=== PATIENT | male | born 1930 | race Caucasian/White ===

== ENCOUNTER 2019-05-15 11:57 | Inpatient (IN) | payer MEDICARE, OTHER ==
[~2019-05-15] VITALS: Ht 162.6 cm; Wt 70.8 kg
[2019-05-15 12:32] LABS: BASOPHILS # (AUTO) 0.1 X10'3 (0-0.2); BASOPHILS % (AUTO) 1.1 % (0-1); EOSINOPHILS # (AUTO) 0.2 X10'3 (0-0.9); EOSINOPHILS % (AUTO) 2.5 % (0-6); HEMATOCRIT 41.3 % (42.0-52.0); HEMOGLOBIN 13.7 g/dl (14.0-17.9); LYMPHOCYTES # (AUTO) 1.4 X10'3 (1.1-4.8); LYMPHOCYTES % (AUTO) 21.6 % (21-51); MEAN CORPUSCULAR HEMOGLOBIN 29.7 PG (27.0-31.0); MEAN CORPUSCULAR HGB CONC 33.2 g/dL (33.0-36.5); MEAN CORPUSCULAR VOLUME 89.5 FL (78-98); MEAN PLATELET VOLUME 9.1 FL (7.4-10.4); NEUTROPHILS # (AUTO) 3.8 X10'3 (1.8-7.7); NEUTROPHILS % (AUTO) 59.8 % (42-75); PLATELET COUNT 220 X10'3 (140-440); RED BLOOD COUNT 4.62 X10'6 (4.70-6.10); RED CELL DISTRIBUTION WIDTH 14.3 % (11.5-14.5); WHITE BLOOD COUNT 6.4 X10'3 (4.5-11.0)
[2019-05-15 12:44] LABS: PARTIAL THROMBOPLASTIN TIME 27 SECONDS (22-32)
[2019-05-15 12:45] LABS: ALANINE AMINOTRANSFERASE 39 U/L (12-78); ALBUMIN 3.8 G/DL (3.4-5.0); ALBUMIN/GLOBULIN RATIO 1.1 (1.1-1.5); ALKALINE PHOSPHATASE 52 IU/L (46-116); ANION GAP 9 (8-16); ASPARTATE AMINO TRANSFERASE 33 U/L (10-37); BILIRUBIN,TOTAL 0.4 MG/DL (0.1-1.0); BLOOD UREA NITROGEN 23 MG/DL (7-18); BUN/CREATININE RATIO 18.1 (5.4-32.0); CALCIUM 8.8 MG/DL (8.5-10.1); CHLORIDE 105 MMOL/L (99-107); CREATININE 1.27 MG/DL (0.60-1.10); GLUCOSE 85 MG/DL (70-104); POTASSIUM 4.5 MMOL/L (3.5-5.1); SODIUM 141 MMOL/L (135-145); TOTAL CARBON DIOXIDE 26.8 MMOL/L (24-32); TOTAL PROTEIN 7.3 G/DL (6.4-8.2); eGFR 54 ML/MIN
[2019-05-15] MEDS ORDERED: heparin 10,000 units/1 ML INJ IV ONE ×2 (13:00→13:05)
[2019-05-15] MEDS ORDERED: ATOR40TA PO (13:22)
[2019-05-15] MEDS ORDERED: HYDR12.5 PO (13:22)
[2019-05-15] MEDS ORDERED: METO25TA6 PO (13:22)
[2019-05-15] MEDS ORDERED: OMEP20CA11 PO (13:22)
[2019-05-15] MEDS: heparin 25,000 UNIT/250ml bag 250 ML IV SCH ×2 (13:23→22:10)
[2019-05-15] MEDS ORDERED: nitroGLYCERIN 0.4mg SUBLingual tab SL PRN ×3 (13:25→14:20)
[2019-05-15] MEDS ORDERED: heparin 25,000 UNIT/250ml bag 250 ML IV SCH (14:19)
[2019-05-15] MEDS ORDERED: mag hydrox/Alum hydrox/simeth 30ml oral suspension PO PRN (14:20)
[2019-05-15] MEDS ORDERED: HYDROcodone/acetaminophen 5mg/325mg tablet PO PRN (14:20)
[2019-05-15] MEDS ORDERED: aminophylline 250mg/10ml inj. IV PRN (14:20)
[2019-05-15] MEDS ORDERED: potassium Cl 20 mEq SR tablet PO PRN ×2 (14:20)
[2019-05-15] MEDS ORDERED: metoprolol tartrate 1mg/ml inj IV PRN (14:20)
[2019-05-15] MEDS ORDERED: ondansetron/PF 4mg/2ml inj IV PRN (14:20)
[2019-05-15] MEDS ORDERED: morphine 2 MG/ML inj. syringe IV PRN ×2 (14:20)
[2019-05-15] MEDS ORDERED: heparin 10,000 units/1 ML INJ IV PRN (14:20)
[2019-05-15] MEDS ORDERED: potassium CL 10mEq/100ml bag 100 ML IV PRN ×2 (14:20)
[2019-05-15] MEDS ORDERED: magnesium 2GM in 50ml NS 50 ML IV PRN (14:20)
[2019-05-15] MEDS ORDERED: regadenoson 0.4mg/5ml syringe IV ONE (14:20)
[2019-05-15] MEDS ORDERED: magnesium 4gm in 100ml NS 100 ML IV PRN (14:20)
[2019-05-15] MEDS ORDERED: magnesium Cl slow-release 64mg tablet PO PRN (14:20)
[2019-05-15] MEDS ORDERED: acetaminophen 325mg tablet PO PRN ×2 (14:20)
[2019-05-15] MEDS ORDERED: magnesium hydroxide 30ml (MOM) UD suspension PO PRN (14:20)
[2019-05-15] MEDS: normal saline 1000ml 1,000 ML IV SCH (14:49)
[2019-05-15 15:07] LABS: PHOSPHORUS 4.6 MG/DL (2.3-4.5)
[2019-05-15 16:00] VITALS: BP 147/59
[2019-05-15 16:59] LABS: MAGNESIUM 1.9 MG/DL (1.5-2.4)
--- NOTE | 2019-05-15 17:25 | NUR ---
PAGER ID: [phone] MESSAGE: [phone]-[facility]. FYI. 2nd Trop. is 0.52. Thank You. Cole CUEVA [id number]
[2019-05-15 18:00] VITALS: BP 148/65
--- NOTE | 2019-05-15 18:00 | NUR ---
Patient in room MED 316. I have received report from Cole CUEVA and had the opportunity to ask questions and assume patient care.
--- NOTE | 2019-05-15 18:25 | NUR ---
Problems reprioritized. Patient report given, questions answered & plan of care reviewed with oCrinne CUEVA and Carroll CUEVA.
[2019-05-15] MEDS: metoprolol tartrate 25mg tablet PO SCH (20:00)
[2019-05-15] MEDS ORDERED: temazepam 15mg capsule PO PRN (21:00)
[2019-05-15 22:00] VITALS: BP 127/58
[2019-05-16] VITALS (14 sets, daily range): BP systolic 118–167; BP diastolic 45–64
[2019-05-16 01:22] LABS: BASOPHILS # (AUTO) 0.1 X10'3 (0-0.2); EOSINOPHILS # (AUTO) 0.2 X10'3 (0-0.9); EOSINOPHILS % (AUTO) 3.9 % (0-6); HEMATOCRIT 38.8 % (42.0-52.0); HEMOGLOBIN 13.1 g/dl (14.0-17.9); LYMPHOCYTES # (AUTO) 1.4 X10'3 (1.1-4.8); MEAN CORPUSCULAR HEMOGLOBIN 29.8 PG (27.0-31.0); MEAN CORPUSCULAR HGB CONC 33.8 g/dL (33.0-36.5); MEAN CORPUSCULAR VOLUME 88.2 FL (78-98); MEAN PLATELET VOLUME 9.1 FL (7.4-10.4); MONOCYTES # (AUTO) 0.8 X10'3 (0-0.9); MONOCYTES % (AUTO) 14.4 % (2-12); NEUTROPHILS # (AUTO) 2.9 X10'3 (1.8-7.7); NEUTROPHILS % (AUTO) 54.7 % (42-75); PLATELET COUNT 191 X10'3 (140-440); RED CELL DISTRIBUTION WIDTH 14.2 % (11.5-14.5); WHITE BLOOD COUNT 5.4 X10'3 (4.5-11.0)
[2019-05-16 01:34] LABS: ALBUMIN 3.4 G/DL (3.4-5.0); ANION GAP 9 (8-16); BLOOD UREA NITROGEN 20 MG/DL (7-18); CALCIUM 8.4 MG/DL (8.5-10.1); CHLORIDE 107 MMOL/L (99-107); CHOL/HDL RATIO 4.6 (0.00-4.99); CHOLESTEROL 158 MG/DL (0-200); CREATININE 1.11 MG/DL (0.60-1.10); GLUCOSE 99 MG/DL (70-104); HDL CHOLESTEROL 34 MG/DL (35-60); LDL CHOLESTEROL 117 MG/DL (50-100); MAGNESIUM 1.9 MG/DL (1.5-2.4); PHOSPHORUS 4.2 MG/DL (2.3-4.5); POTASSIUM 3.9 MMOL/L (3.5-5.1); SODIUM 142 MMOL/L (135-145); TRIGLYCERIDES 88 MG/DL (20-135); eGFR 63 ML/MIN
--- NOTE | 2019-05-16 02:20 | NUR ---
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 Corinne ACCE [id number]
[2019-05-16] MEDS: normal saline 1000ml 1,000 ML IV SCH ×2 (04:37→21:17)
--- NOTE | 2019-05-16 05:25 | NUR ---
I reviewed and agree with all the documentation performed by Anand.
[2019-05-16] MEDS: heparin 10,000 units/1 ML INJ IV PRN ×2 (05:45→05:53)
[2019-05-16] MEDS: heparin 25,000 UNIT/250ml bag 250 ML IV SCH ×3 (05:57→20:45)
--- NOTE | 2019-05-16 06:46 | NUR ---
I have received report from Corinne CUEVA and Carroll CUEVA and had the opportunity to ask questions and assume patient care.
[2019-05-16] MEDS: pantoprazole 40mg Tablet.DR PO SCH (07:49)
[2019-05-16] MEDS: aspirin 325mg tablet PO SCH (07:49)
--- NOTE | 2019-05-16 07:56 | NUR ---
PAGER ID: [phone] MESSAGE: [phone]. [facility] is asking if we still want to do the test due to the pt. having rising trops? Cole CUEVA [id number]
[2019-05-16] MEDS: HYDROchlorothiazide 12.5mg capsule PO SCH (08:00)
[2019-05-16] MEDS: metoprolol tartrate 25mg tablet PO SCH ×2 (08:00→20:38)
[2019-05-16] MEDS: K and/or MAG REPLACEMENT MC SCH (08:00)
[2019-05-16] MEDS ORDERED: aspirin 325mg tablet PO SCH (08:30)
[2019-05-16 12:16] LABS: PARTIAL THROMBOPLASTIN TIME 65 SECONDS (22-32)
--- NOTE | 2019-05-16 18:14 | NUR ---
Problems reprioritized. Patient report given, questions answered & plan of care reviewed with Carroll CUEVA and Corinne CUEVA.
[2019-05-16] MEDS: acetylcysteine 200 MG/ml 4ml vial PO SCH (20:47)
--- NOTE | 2019-05-16 21:30 | NUR ---
DR. ERNANDEZ CAME BY UNIT. ORDERED PATIENT TO BE NPO IN THE MORNING AFTER A LIGHT BREAKFAST AND TO NOTIFY NURSING ALCOHOL RUBBER THAT PATIENT NEEDS TO BE PUT ON THE CATH LIST FOR TOMORROW. NURSING ALCOHOL RUBBER NOTIFIED.
[2019-05-17] VITALS (13 sets, daily range): BP systolic 125–176; BP diastolic 51–85
[2019-05-17] MEDS: heparin 25,000 UNIT/250ml bag 250 ML IV SCH (01:30)
[2019-05-17 01:50] LABS: BASOPHILS # (AUTO) 0.1 X10'3 (0-0.2); BASOPHILS % (AUTO) 1.1 % (0-1); EOSINOPHILS # (AUTO) 0.2 X10'3 (0-0.9); EOSINOPHILS % (AUTO) 3.3 % (0-6); HEMATOCRIT 38.6 % (42.0-52.0); HEMOGLOBIN 13.1 g/dl (14.0-17.9); LYMPHOCYTES # (AUTO) 1.4 X10'3 (1.1-4.8); LYMPHOCYTES % (AUTO) 25.1 % (21-51); MEAN CORPUSCULAR HEMOGLOBIN 29.9 PG (27.0-31.0); MEAN CORPUSCULAR HGB CONC 33.9 g/dL (33.0-36.5); MEAN CORPUSCULAR VOLUME 88.2 FL (78-98); MONOCYTES # (AUTO) 0.9 X10'3 (0-0.9); MONOCYTES % (AUTO) 15.6 % (2-12); NEUTROPHILS % (AUTO) 54.9 % (42-75); PLATELET COUNT 189 X10'3 (140-440); RED BLOOD COUNT 4.37 X10'6 (4.70-6.10); RED CELL DISTRIBUTION WIDTH 14.4 % (11.5-14.5); WHITE BLOOD COUNT 5.5 X10'3 (4.5-11.0)
[2019-05-17 02:04] LABS: ALBUMIN 3.3 G/DL (3.4-5.0); ANION GAP 8 (8-16); BLOOD UREA NITROGEN 20 MG/DL (7-18); BUN/CREATININE RATIO 17.9 (5.4-32.0); CALCIUM 8.3 MG/DL (8.5-10.1); CHLORIDE 108 MMOL/L (99-107); CREATININE 1.12 MG/DL (0.60-1.10); GLUCOSE 102 MG/DL (70-104); PHOSPHORUS 3.6 MG/DL (2.3-4.5); POTASSIUM 3.8 MMOL/L (3.5-5.1); SODIUM 142 MMOL/L (135-145); TOTAL CARBON DIOXIDE 26.4 MMOL/L (24-32); eGFR 62 ML/MIN
--- NOTE | 2019-05-17 07:02 | NUR ---
Patient in room MED 316. I have received report from HAMMAD Hodges and had the opportunity to ask questions and assume patient care.
[2019-05-17] MEDS: K and/or MAG REPLACEMENT MC SCH (07:41)
[2019-05-17] MEDS: pantoprazole 40mg Tablet.DR PO SCH (07:49)
[2019-05-17] MEDS: atorvastatin 20mg tablet PO SCH (07:50)
[2019-05-17] MEDS: metoprolol tartrate 25mg tablet PO SCH ×2 (07:51→21:54)
[2019-05-17] MEDS: HYDROchlorothiazide 12.5mg capsule PO SCH (07:51)
[2019-05-17] MEDS: aspirin 325mg tablet PO SCH (07:52)
[2019-05-17] MEDS: acetylcysteine 200 MG/ml 4ml vial PO SCH ×2 (08:04→23:25)
[2019-05-17] MEDS: normal saline 1000ml 1,000 ML IV SCH (13:22)
[2019-05-17] MEDS ORDERED: iohexol 350MG/ML 100ml bottle IV ONE ×3 (16:27→17:51)
[2019-05-17] MEDS ORDERED: midazolam 2 mg/2 ml injection ONE (16:27)
[2019-05-17] MEDS ORDERED: nitroGLYCERIN-Tridil 50MG/D5W 250 ML IV ONE (16:27)
[2019-05-17] MEDS ORDERED: iohexol 350 MG/ML 50ML vial IV ONE (16:27)
[2019-05-17] MEDS ORDERED: LIDOcaine 1% (10mg/ml)w/preservative injection 20ml MDV ONE (16:27)
[2019-05-17] MEDS ORDERED: fentaNYL/PF 50MCG/1 ML 2ML syringe ONE (16:27)
[2019-05-17] MEDS ORDERED: heparin 1,000unit/ml 10ml vial 10 ML ONE (16:27)
--- NOTE | 2019-05-17 16:42 | NUR ---
PATIENT'S PEDAL PULSES MARKED, CONSENT SIGNED ; TRANSFERRED TO COAL CAGER VIA W/C AT THIS TIME. Addendum: 05/17/19 at 1645 by Keeley Helm RN Amended: Links added.
[2019-05-17] MEDS ORDERED: tirofiban 12.5mg in NS 250mL 250 ML IV ONE (17:33)
[2019-05-17] MEDS ORDERED: verapamil 2.5 mg/ml inj IV ONE (17:43)
[2019-05-17] MEDS ORDERED: ticagrelor 90mg tablet ONE (18:09)
[2019-05-17] MEDS ORDERED: aspirin 325mg tablet PO ONE (19:55)
[2019-05-17] MEDS ORDERED: normal saline 1000ml 1,000 ML IV ONE (19:55)
[2019-05-17] MEDS ORDERED: OXAZEpam 15mg capsule PO PRN (20:00)
[2019-05-17] MEDS ORDERED: ticagrelor 90mg tablet PO ONE (20:00)
[2019-05-17] MEDS ORDERED: cyclobenzaprine 10mg tablet PO PRN (20:00)
[2019-05-17] MEDS ORDERED: acetaminophen 325mg tablet PO PRN (20:00)
[2019-05-17] MEDS ORDERED: magnesium hydroxide 30ml (MOM) UD suspension PO PRN (20:00)
[2019-05-17] MEDS ORDERED: HYDROcodone/acetaminophen 10/325mg tab PO PRN ×2 (20:00)
[2019-05-17] MEDS ORDERED: tirofiban 12.5mg in NS 250mL 250 ML IV SCH (20:10)
[2019-05-17] MEDS: docusate sod 100mg capsule PO SCH (21:54)
[2019-05-18] VITALS (21 sets, daily range): BP systolic 102–151; BP diastolic 43–61
[2019-05-18 01:29] LABS: PARTIAL THROMBOPLASTIN TIME 72 SECONDS (22-32)
[2019-05-18 01:35] LABS: ANION GAP 8 (8-16); BLOOD UREA NITROGEN 15 MG/DL (7-18); BUN/CREATININE RATIO 16.9 (5.4-32.0); CALCIUM 7.7 MG/DL (8.5-10.1); CHLORIDE 109 MMOL/L (99-107); CHOLESTEROL 149 MG/DL (0-200); CREATININE 0.89 MG/DL (0.60-1.10); GLUCOSE 128 MG/DL (70-104); HDL CHOLESTEROL 37 MG/DL (35-60); LDL CHOLESTEROL 101 MG/DL (50-100); MAGNESIUM 1.9 MG/DL (1.5-2.4); PHOSPHORUS 2.3 MG/DL (2.3-4.5); POTASSIUM 3.6 MMOL/L (3.5-5.1); SODIUM 140 MMOL/L (135-145); TOTAL CARBON DIOXIDE 23.3 MMOL/L (24-32); TRIGLYCERIDES 80 MG/DL (20-135); eGFR 81 ML/MIN
[2019-05-18 01:41] LABS: BASOPHILS % (AUTO) 0.5 % (0-1); EOSINOPHILS # (AUTO) 0.1 X10'3 (0-0.9); HEMATOCRIT 35.9 % (42.0-52.0); HEMOGLOBIN 12.2 g/dl (14.0-17.9); LYMPHOCYTES # (AUTO) 0.7 X10'3 (1.1-4.8); LYMPHOCYTES % (AUTO) 8.4 % (21-51); MEAN CORPUSCULAR HEMOGLOBIN 29.9 PG (27.0-31.0); MEAN CORPUSCULAR VOLUME 88.2 FL (78-98); MEAN PLATELET VOLUME 9.2 FL (7.4-10.4); MONOCYTES % (AUTO) 11.8 % (2-12); NEUTROPHILS # (AUTO) 6.4 X10'3 (1.8-7.7); NEUTROPHILS % (AUTO) 78.3 % (42-75); PLATELET COUNT 197 X10'3 (140-440); RED BLOOD COUNT 4.07 X10'6 (4.70-6.10); RED CELL DISTRIBUTION WIDTH 14.7 % (11.5-14.5); WHITE BLOOD COUNT 8.1 X10'3 (4.5-11.0)
--- NOTE | 2019-05-18 02:09 | NUR ---
heparin gtt decreased to 700 units per hour per protocol. right groin site cdi, soft, no hematoma. patient is comfortably sleeping. no pain, no distress. vss. recent 5 beat run of v-tach - broke on own. did not appear to drop pressure. I immediately spoke to patient and he did not feel any different when it occurred. see bed side chart. labs are pending to check lytes. patient has been npo since midnight. patient signed consent for procedure with dr leon in am. it is on bedside chart . patient called his family near 2250 to let them know of the time change for the procedure. patient denies pain. no other changes.
[2019-05-18] MEDS ORDERED: nitroGLYCERIN-Tridil 50MG/D5W 250 ML IV ONE (06:09)
[2019-05-18] MEDS ORDERED: midazolam 2 mg/2 ml injection ONE (06:09)
[2019-05-18] MEDS ORDERED: fentaNYL/PF 50MCG/1 ML 2ML syringe ONE (06:10)
[2019-05-18] MEDS ORDERED: heparin 1,000unit/ml 10ml vial 10 ML ONE (06:10)
[2019-05-18] MEDS ORDERED: LIDOcaine 1% (10mg/ml)w/preservative injection 20ml MDV ONE (06:10)
[2019-05-18] MEDS ORDERED: iohexol 350 MG/1 ML 200ml bottle ONE (06:10)
--- NOTE | 2019-05-18 06:42 | NUR ---
Patient in room CICU 2006. I have received report from Clint Cabrera RN and had the opportunity to ask questions and assume patient care.
[2019-05-18] MEDS ORDERED: ticagrelor 90mg tablet ONE (07:26)
[2019-05-18] MEDS ORDERED: heparin 25,000 UNIT/250ml bag 250 ML IV ONE (07:37)
--- NOTE | 2019-05-18 07:48 | NUR ---
Pt taken to analytical laboratory technician @ [id number]
--- NOTE | 2019-05-18 08:25 | NUR ---
report called from garden labourer. pt received stent to RCA and 3 to SVG OM. Dc hep at 0930, When ACT is <180 dc sheath, stop aggrastat when bag complete. Pt received 4000units hep bolus and Brilinta 180mg.
--- NOTE | 2019-05-18 08:53 | NUR ---
pt back from laboratory machinist. femstop on right groin. no noted hematoma, positive pedal pulses. family at bedside.
[2019-05-18] MEDS: ticagrelor 90mg tablet PO SCH ×2 (09:16→20:21)
[2019-05-18] MEDS: normal saline 1000ml 1,000 ML IV SCH ×2 (09:20→12:38)
[2019-05-18] MEDS ORDERED: proCHLORperazine 10 MG/2 ml inj IV PRN (09:45)
[2019-05-18] MEDS ORDERED: acetaminophen 325mg tablet PO PRN (09:45)
[2019-05-18] MEDS ORDERED: magnesium hydroxide 30ml (MOM) UD suspension PO PRN (09:45)
[2019-05-18] MEDS ORDERED: HYDROcodone/acetaminophen 10/325mg tab PO PRN ×2 (09:45)
[2019-05-18] MEDS: K and/or MAG REPLACEMENT MC SCH (09:52)
[2019-05-18] MEDS: acetylcysteine 200 MG/ml 4ml vial PO SCH ×2 (10:19→20:20)
[2019-05-18] MEDS: metoprolol tartrate 25mg tablet PO SCH ×2 (10:20→20:21)
[2019-05-18] MEDS: HYDROchlorothiazide 12.5mg capsule PO SCH (10:20)
[2019-05-18] MEDS: aspirin 81mg tab.chew PO SCH (10:20)
[2019-05-18] MEDS: docusate sod 100mg capsule PO SCH ×2 (10:20→20:00)
[2019-05-18] MEDS: pantoprazole 40mg Tablet.DR PO SCH (10:20)
[2019-05-18 11:09] LABS: CHOL/HDL RATIO 3.3 (0.00-4.99); CHOLESTEROL 133 MG/DL (0-200); HDL CHOLESTEROL 40 MG/DL (35-60); LDL CHOLESTEROL 92 MG/DL (50-100); TRIGLYCERIDES 37 MG/DL (20-135)
--- NOTE | 2019-05-18 11:54 | NUR ---
ACT 158.
--- NOTE | 2019-05-18 13:49 | NUR ---
1250 Art line removed and pressure held for 20 minutes then femstop placed on insertion site. No noticeable bleeding or hematoma present. Dr. Gould called to check on pt. Pt educated on removal process, keeping leg straight and removal time in 6 hours. positive pedal pulse by palpation.
--- NOTE | 2019-05-18 14:14 | NUR ---
heart healthy diet consult: Pt s/p cardiac cath. Pt resting s/p cath and will need heart healthy diet ed once more appropriate prior to d/c. PO 75-100% meals prior. Will continue to monitor. Addendum: 05/18/19 at [address] Amended: Links added.
--- NOTE | 2019-05-18 18:25 | NUR ---
Problems reprioritized. Patient report given, questions answered & plan of care reviewed with HILDA CUEVA.
--- NOTE | 2019-05-18 19:38 | NUR ---
right groin femstop removed per order. Site is soft, without s/sx active bleeding or hematoma. patient denies pain. hob ~ 40 degrees - monitored site after hob raised. remains unchanged and CDI. patient is currently having dinner. c/o little appetite but he will try to eat something. vss. all procedures explained
[2019-05-18] MEDS ORDERED: docusate sod 100mg capsule PO SCH (20:00)
[2019-05-19] VITALS (16 sets, daily range): BP systolic 104–145; BP diastolic 40–67
[2019-05-19 05:22] LABS: BASOPHILS % (AUTO) 0.3 % (0-1); EOSINOPHILS % (AUTO) 0.2 % (0-6); HEMATOCRIT 34.5 % (42.0-52.0); HEMOGLOBIN 11.7 g/dl (14.0-17.9); LYMPHOCYTES # (AUTO) 0.8 X10'3 (1.1-4.8); LYMPHOCYTES % (AUTO) 8.8 % (21-51); MEAN CORPUSCULAR HGB CONC 33.9 g/dL (33.0-36.5); MEAN CORPUSCULAR VOLUME 88.7 FL (78-98); MEAN PLATELET VOLUME 9.3 FL (7.4-10.4); MONOCYTES # (AUTO) 1.4 X10'3 (0-0.9); MONOCYTES % (AUTO) 15.4 % (2-12); NEUTROPHILS % (AUTO) 75.3 % (42-75); PLATELET COUNT 172 X10'3 (140-440); RED BLOOD COUNT 3.89 X10'6 (4.70-6.10); RED CELL DISTRIBUTION WIDTH 14.8 % (11.5-14.5); WHITE BLOOD COUNT 9.3 X10'3 (4.5-11.0)
[2019-05-19 05:32] LABS: ANION GAP 9 (8-16); BLOOD UREA NITROGEN 10 MG/DL (7-18); CALCIUM 8.2 MG/DL (8.5-10.1); CHLORIDE 108 MMOL/L (99-107); GLUCOSE 104 MG/DL (70-104); MAGNESIUM 1.8 MG/DL (1.5-2.4); PHOSPHORUS 3.7 MG/DL (2.3-4.5); POTASSIUM 3.5 MMOL/L (3.5-5.1); SODIUM 142 MMOL/L (135-145); TOTAL CARBON DIOXIDE 25.5 MMOL/L (24-32); eGFR 71 ML/MIN
--- NOTE | 2019-05-19 06:37 | NUR ---
Patient in room CICU 2006. I have received report from Clint and had the opportunity to ask questions and assume patient care.
[2019-05-19] MEDS: K and/or MAG REPLACEMENT MC SCH (06:42)
[2019-05-19] MEDS: metoprolol tartrate 25mg tablet PO SCH ×2 (07:58→19:38)
[2019-05-19] MEDS: HYDROchlorothiazide 12.5mg capsule PO SCH (07:58)
[2019-05-19] MEDS: pantoprazole 40mg Tablet.DR PO SCH (07:58)
[2019-05-19] MEDS: ticagrelor 90mg tablet PO SCH ×3 (07:59→19:38)
[2019-05-19] MEDS: docusate sod 100mg capsule PO SCH ×2 (07:59→19:37)
[2019-05-19] MEDS: atorvastatin 20mg tablet PO SCH (07:59)
[2019-05-19] MEDS: aspirin 81mg tab.chew PO SCH (07:59)
[2019-05-19] MEDS: acetylcysteine 200 MG/ml 4ml vial PO SCH (09:25)
[2019-05-19] MEDS ORDERED: amiodarone 50MG/ML inj IV ONE (11:40)
--- NOTE | 2019-05-19 12:08 | NUR ---
Called report to Layla on ACCE unit. Transfered to floor via with all personal belongings.
--- NOTE | 2019-05-19 13:43 | NUR ---
received report from HAMMAD Day,assumed care pt transfered to room 310 with all belongings,placed on moniter.
[2019-05-19] MEDS ORDERED: potassium CL 10mEq/100ml bag 100 ML IV PRN (14:10)
[2019-05-19] MEDS ORDERED: magnesium 2GM in 50ml NS 50 ML IV PRN (14:10)
[2019-05-19] MEDS ORDERED: magnesium 4gm in 100ml NS 100 ML IV PRN (14:10)
[2019-05-19] MEDS ORDERED: potassium Cl 20 mEq SR tablet PO PRN (14:10)
[2019-05-19] MEDS ORDERED: magnesium Cl slow-release 64mg tablet PO PRN (14:10)
--- NOTE | 2019-05-19 15:48 | NUR ---
PRESSURE ULCER EDUCATION: DEFINITION: A pressure ulcer is an area of skin that breaks down when you stay in one position too long. The constant pressure against the skin reduces the blood flow to that area and the affected tissue dies. CAUSES: "Being bedridden or in a wheelchair "Fragile skin "Having a chronic condition, such as diabetes or vascular disease "Inability to move certain parts of your body without assistance "Older age "Incontinence of urine or stool SYMPTOMS: "A reddened area that DOES NOT turn white when pressed on - this can be the beginning of a pressure ulcer "A blister, deep sore or a crater - these can be advanced pressure ulcers FIRST AID: "Relieve the pressure on this area "Keep the area clean and dry "Call your primary doctor if you see any of the above symptoms "DO NOT massage the area "DO NOT use a donut shaped or ring shaped pillow- these actually interfere with the blood flow and cause complications PREVENTION: "Check for pressure ulcers everyday "Change position at least every two hours to relieve pressure "Use items that help relieve pressure- pillows, sheepskin, foam padding, and powders. "Keep skin clean and dry "Eat healthy well balanced meals "Exercise daily IF YOU SEE ANY OF THESE SYMPTOMS WHILE IN THE HOSPITAL - TELL YOUR NURSE IMMEDIATELY. IF YOU SEE ANY OF THESE SYMPTOMS WHILE AT HOME OR HAVE ANY QUESTIONS OR CONCERNS ABOUT PRESSURE ULCERS - CALL YOUR PRIMARY DOCTOR IMMEDIATELY. Addendum: 05/19/19 at 1548 by Massiel Muñoz RN Amended: Links added.
--- NOTE | 2019-05-19 18:32 | NUR ---
Patient in room MED 310. I have received report from Pat RN and had the opportunity to ask questions and assume patient care. no distress noted. bedside report completed.
[2019-05-20 02:07] VITALS: BP 140/64
--- NOTE | 2019-05-20 04:20 | NUR ---
Reviewed and agreed with HAMMAD Sandoval's charting
--- NOTE | 2019-05-20 06:09 | NUR ---
Problems reprioritized. Patient report given to Anali Radford RN questions answered & plan of care reviewed with. no distress noted. pt resting quietly, bed lock and low, call light in reach, endoresed care to Anali Radford RN
--- NOTE | 2019-05-20 06:30 | NUR ---
received report from HAMMAD Briones,assumed care of pt
[2019-05-20 06:34] VITALS: BP 134/61
[2019-05-20 06:42] LABS: BASOPHILS % (AUTO) 0.2 % (0-1); EOSINOPHILS # (AUTO) 0.1 X10'3 (0-0.9); EOSINOPHILS % (AUTO) 0.7 % (0-6); HEMATOCRIT 32.9 % (42.0-52.0); HEMOGLOBIN 11.4 g/dl (14.0-17.9); LYMPHOCYTES # (AUTO) 0.8 X10'3 (1.1-4.8); LYMPHOCYTES % (AUTO) 8.3 % (21-51); MEAN CORPUSCULAR HEMOGLOBIN 30.2 PG (27.0-31.0); MEAN CORPUSCULAR HGB CONC 34.5 g/dL (33.0-36.5); MEAN CORPUSCULAR VOLUME 87.5 FL (78-98); MEAN PLATELET VOLUME 9.3 FL (7.4-10.4); MONOCYTES # (AUTO) 1.7 X10'3 (0-0.9); MONOCYTES % (AUTO) 16.8 % (2-12); NEUTROPHILS # (AUTO) 7.4 X10'3 (1.8-7.7); PLATELET COUNT 166 X10'3 (140-440); RED BLOOD COUNT 3.77 X10'6 (4.70-6.10); RED CELL DISTRIBUTION WIDTH 14.3 % (11.5-14.5)
[2019-05-20 06:46] LABS: ALBUMIN 2.9 G/DL (3.4-5.0); ANION GAP 13 (8-16); BLOOD UREA NITROGEN 15 MG/DL (7-18); BUN/CREATININE RATIO 15.6 (5.4-32.0); CALCIUM 8.2 MG/DL (8.5-10.1); CHLORIDE 106 MMOL/L (99-107); CREATININE 0.96 MG/DL (0.60-1.10); GLUCOSE 98 MG/DL (70-104); MAGNESIUM 1.9 MG/DL (1.5-2.4); PHOSPHORUS 2.5 MG/DL (2.3-4.5); POTASSIUM 3.2 MMOL/L (3.5-5.1); SODIUM 141 MMOL/L (135-145); TOTAL CARBON DIOXIDE 22.5 MMOL/L (24-32); eGFR 74 ML/MIN
[2019-05-20] MEDS: K and/or MAG REPLACEMENT MC SCH (08:00)
[2019-05-20] MEDS: pantoprazole 40mg Tablet.DR PO SCH (09:06)
[2019-05-20] MEDS: ticagrelor 90mg tablet PO SCH (09:07)
[2019-05-20] MEDS: aspirin 81mg tab.chew PO SCH (09:07)
[2019-05-20] MEDS: docusate sod 100mg capsule PO SCH (09:08)
[2019-05-20] MEDS: metoprolol tartrate 25mg tablet PO SCH (09:08)
[2019-05-20] MEDS: HYDROchlorothiazide 12.5mg capsule PO SCH (09:09)
[2019-05-20] MEDS: potassium Cl 20 mEq SR tablet PO PRN ×2 (09:09→13:03)
--- NOTE | 2019-05-20 10:09 | NUR ---
paged Dr. Freitas to see patient "Re: Chey, Glenn in 310. Dr. Wells asked that you roller picker this patient, you had seen him prior to cath. thank you, stephanie BARFIELD [phone] please call to acknowledge."
[2019-05-20] MEDS ORDERED: ASPI-1265 PO (10:50)
[2019-05-20] MEDS ORDERED: TICA90TA PO (10:50)
[2019-05-20 11:00] VITALS: BP 131/55
--- NOTE | 2019-05-20 11:46 | NUR ---
F/u: Pt seen by FIDEL for written/verbal heart healthy diet ed w/ RD contact information provided. Pt declined verbal review; RD encouraged to call if further concerns since pending d/c at this time. Addendum: 05/20/19 at [address] Amended: Links added.
--- NOTE | 2019-05-20 13:58 | NUR ---
Pt. received all discharge instructions,including packet,brillenta coupon and stent cards. both IV 's dc'd with catheters intact,sites clear.pt. aware of need for f/u appts,pt denies any questions or concerns,discharged with all belongings
== END 2019-05-20 14:30 | disposition home or self-care (01) | DRG 246 ==
LOC: ER 11:58 → CANBEDREQ 13:42 → OBSVTOIN 15:23 → PCU 3S 15:23 → MED 3N 15:44 → CMPBEDREQ 05-17 03:56 → CICU 2S 05-17 19:11 → MED 3N 05-19 12:00
PROVIDERS: ADMIT Family Medicine; ATTEND Hospitalist
PROC: 4A02XM4 Measurement of Cardiac Total Activity, External Approach (ICD-10-PCS; 2019-05-16)
PROC: 3E033HZ Introduction of Radioactive Substance into Peripheral Vein, Percutaneous Approach (ICD-10-PCS; 2019-05-16)
PROC: 027034Z Dilation of Coronary Artery, One Artery with Drug-eluting Intraluminal Device, Percutaneous Approach (ICD-10-PCS; 2019-05-17)
PROC: 4A023N7 Measurement of Cardiac Sampling and Pressure, Left Heart, Percutaneous Approach (ICD-10-PCS; 2019-05-17)
PROC: B2111ZZ Fluoroscopy of Multiple Coronary Arteries using Low Osmolar Contrast (ICD-10-PCS; 2019-05-17)
PROC: B2151ZZ Fluoroscopy of Left Heart using Low Osmolar Contrast (ICD-10-PCS; 2019-05-17)
PROC: B3101ZZ Fluoroscopy of Thoracic Aorta using Low Osmolar Contrast (ICD-10-PCS; 2019-05-17)
PROC: B2181ZZ Fluoroscopy of Left Internal Mammary Bypass Graft using Low Osmolar Contrast (ICD-10-PCS; 2019-05-17)
PROC: B2131ZZ Fluoroscopy of Multiple Coronary Artery Bypass Grafts using Low Osmolar Contrast (ICD-10-PCS; 2019-05-17)
PROC: 027137Z Dilation of Coronary Artery, Two Arteries with Four or More Drug-eluting Intraluminal Devices, Percutaneous Approach (ICD-10-PCS; principal; 2019-05-18)
DX: T82.857A Stenosis of other cardiac prosthetic devices, implants and grafts, initial encounter (principal); I21.4 Non-ST elevation (NSTEMI) myocardial infarction; I25.110 Atherosclerotic heart disease of native coronary artery with unstable angina pectoris; I45.10 Unspecified right bundle-branch block; E78.5 Hyperlipidemia, unspecified; I12.9 Hypertensive chronic kidney disease with stage 1 through stage 4 chronic kidney disease, or unspecified chronic kidney disease; E78.00 Pure hypercholesterolemia, unspecified; I34.0 Nonrheumatic mitral (valve) insufficiency; Y83.2 Surgical operation with anastomosis, bypass or graft as the cause of abnormal reaction of the patient, or of later complication, without mention of misadventure at the time of the procedure; N18.9 Chronic kidney disease, unspecified; N39.498 Other specified urinary incontinence; Z87.891 Personal history of nicotine dependence; Z90.79 Acquired absence of other genital organ(s); Z85.46 Personal history of malignant neoplasm of prostate; Z79.82 Long term (current) use of aspirin; Z79.899 Other long term (current) drug therapy; Z95.1 Presence of aortocoronary bypass graft; Z95.5 Presence of coronary angioplasty implant and graft; Y92.89 Other specified places as the place of occurrence of the external cause
CPT/HCPCS: 93306; 93459; 96374; 99285; C9604; C9605; 36415; 71045; 78452; 80048; 80053; 80061; 82948; 83735; 83880; 84100; 84443; 84484; 85025; 85347; 85610; 85730; 87081; 93005; 93017; 99152; 99153; A4620; A6258; A9500; C1725; C1769; C1874; C1894; G0378; J0280; J1644; J2001; J2250; J2785; J3010; J3246; J3490; J7030; J7040; Q9967

== ENCOUNTER 2020-05-15 06:03 | Day surgery (SDC) | payer MEDICARE ==
[2020-05-14 10:18] LABS: BASOPHILS % (AUTO) 0.7 % (0-1); EOSINOPHILS # (AUTO) 0.2 X10'3 (0-0.9); HEMATOCRIT 39.9 % (42.0-52.0); HEMOGLOBIN 13.5 g/dl (14.0-17.9); LYMPHOCYTES # (AUTO) 1.2 X10'3 (1.1-4.8); LYMPHOCYTES % (AUTO) 17.9 % (21-51); MEAN CORPUSCULAR HEMOGLOBIN 30.7 PG (27.0-31.0); MEAN CORPUSCULAR HGB CONC 33.7 g/dL (33.0-36.5); MEAN CORPUSCULAR VOLUME 91.1 FL (78-98); MEAN PLATELET VOLUME 9.3 FL (7.4-10.4); MONOCYTES # (AUTO) 0.8 X10'3 (0-0.9); MONOCYTES % (AUTO) 11.2 % (2-12); NEUTROPHILS # (AUTO) 4.6 X10'3 (1.8-7.7); NEUTROPHILS % (AUTO) 67.2 % (42-75); PLATELET COUNT 240 X10'3 (140-440); RED BLOOD COUNT 4.38 X10'6 (4.70-6.10); RED CELL DISTRIBUTION WIDTH 14.4 % (11.5-14.5); WHITE BLOOD COUNT 6.9 X10'3 (4.5-11.0)
[2020-05-14 10:28] LABS: PARTIAL THROMBOPLASTIN TIME 27 SECONDS (22-32)
[2020-05-14 10:31] LABS: ALBUMIN 3.9 G/DL (3.4-5.0); ANION GAP 7 (8-16); BLOOD UREA NITROGEN 21 MG/DL (7-18); BUN/CREATININE RATIO 17.5 (5.4-32.0); CALCIUM 9.3 MG/DL (8.5-10.1); CHLORIDE 105 MMOL/L (99-107); GLUCOSE 92 MG/DL (70-104); POTASSIUM 4.5 MMOL/L (3.5-5.1); SODIUM 141 MMOL/L (135-145); TOTAL CARBON DIOXIDE 28.7 MMOL/L (24-32); eGFR 57 ML/MIN
[2020-05-15] VITALS (32 sets, daily range): BP systolic 76–168; BP diastolic 33–77
[~2020-05-15] VITALS: Ht 162.6 cm; Wt 71.3 kg
[~2020-05-15 06:03] MED LIST: ASPI-1265 PO; ATOR40TA PO; HYDR12.5 PO; METO25TA6 PO; OMEP20CA15 PO; TICA90TA PO
[2020-05-15] MEDS ORDERED: diphenhydrAMINE 25mg capsule PO PRN ×2 (06:20→07:45)
[2020-05-15] MEDS ORDERED: sodium bicarbonate (8.4%) inj. 150 ML in dextrose 5%-water 1,000 ML IV ONE ×2 (06:20→10:30)
[2020-05-15] MEDS ORDERED: LORazepam 0.5 MG tablet PO PRN ×2 (06:20→07:45)
[2020-05-15] MEDS ORDERED: TICA90TA PO (07:19)
[2020-05-15] MEDS ORDERED: ASPI-1265 PO (07:20)
[2020-05-15] MEDS ORDERED: LISI2.5T89 PO (07:23)
[2020-05-15] MEDS ORDERED: midazolam 2 mg/2 ml injection ONE (07:24)
[2020-05-15] MEDS ORDERED: fentaNYL/PF 50MCG/1 ML 2ML syringe ONE (07:24)
[2020-05-15] MEDS ORDERED: heparin 1,000unit/ml 10ml vial 10 ML ONE (07:24)
[2020-05-15] MEDS ORDERED: LIDOcaine 1% (10mg/ml)w/preservative injection 20ml MDV ONE (07:24)
[2020-05-15] MEDS ORDERED: iohexol 350 MG/ML 50ML vial IV ONE (07:24)
[2020-05-15] MEDS ORDERED: nitroGLYCERIN-Tridil 50MG/D5W 250 ML IV ONE (07:24)
[2020-05-15] MEDS ORDERED: iohexol 350MG/ML 100ml bottle IV ONE ×3 (07:24→09:03)
[2020-05-15] MEDS ORDERED: OMEG-79 PO (07:26)
[2020-05-15] MEDS ORDERED: VITA1CAP19 PO (07:26)
[2020-05-15] MEDS ORDERED: ASCO-157 PO (07:29)
[2020-05-15] MEDS ORDERED: CRAN450T4 PO (07:29)
[2020-05-15] MEDS ORDERED: ECHI400C17 (07:33)
[2020-05-15] MEDS ORDERED: VITA400C67 PO (07:33)
[2020-05-15] MEDS ORDERED: glucosamine PO (07:33)
[2020-05-15] MEDS ORDERED: normal saline 1,000 ML IV SCH (07:45)
[2020-05-15] MEDS ORDERED: heparin 25,000 UNIT/250ml bag 250 ML IV ONE (08:34)
[2020-05-15] MEDS ORDERED: clopidogrel 300mg tablet ONE (09:32)
[2020-05-15] MEDS ORDERED: OXAZEpam 15mg capsule PO PRN (10:30)
[2020-05-15] MEDS ORDERED: magnesium hydroxide 30ml (MOM) UD suspension PO PRN (10:30)
[2020-05-15] MEDS ORDERED: proCHLORperazine 10 MG/2 ml inj IV PRN (10:30)
[2020-05-15] MEDS ORDERED: HYDROcodone/acetaminophen 10/325mg tab PO PRN ×2 (10:30)
[2020-05-15] MEDS ORDERED: cyclobenzaprine 10mg tablet PO PRN (10:30)
[2020-05-15] MEDS ORDERED: heparin 25,000 UNIT/250ml bag 250 ML IV SCH (10:30)
[2020-05-15] MEDS ORDERED: acetaminophen 325mg tablet PO PRN ×2 (10:30)
[2020-05-15] MEDS ORDERED: aspirin 81mg tab.chew PO ONE (10:35)
[2020-05-15] MEDS: acetylcysteine 200 MG/ml 4ml vial PO SCH ×2 (11:29→20:03)
--- NOTE | 2020-05-15 11:55 | NUR ---
ACT done and results showed a number of 191 Addendum: 05/15/20 at 1701 by Charanjit Holden RN Amended: Links added.
--- NOTE | 2020-05-15 12:30 | NUR ---
ACT done and results show 169 Addendum: 05/15/20 at 1701 by Charanjit Holden RN Amended: Links added.
--- NOTE | 2020-05-15 12:45 | NUR ---
analyst microbiology lab techs, Royer and Ryan in to assist with removal of right groin cath sheath. Cath sheath removed and pressure applied by both Royer and Ryan at the same time. Working to achieve hemostasis. Addendum: 05/15/20 at 1701 by Charanjit Holden RN Amended: Links added.
[2020-05-15] MEDS ORDERED: DOPamine 400mg/D5W 250ml 250 ML IV STA ×2 (13:05→20:21)
--- NOTE | 2020-05-15 13:35 | NUR ---
Hemostasis achieved and femostop applied. Vascular ultrasound in to do study to r/o bleeding. Dr. Gould in to see pt at this same time. Addendum: 05/15/20 at 1701 by Charanjit Holden RN Amended: Links added.
[2020-05-15 14:35] LABS: HEMOGLOBIN 12.4 g/dl (14.0-17.9); MEAN CORPUSCULAR HEMOGLOBIN 30.2 PG (27.0-31.0); MEAN CORPUSCULAR HGB CONC 33.5 g/dL (33.0-36.5); MEAN CORPUSCULAR VOLUME 90.1 FL (78-98); PLATELET COUNT 193 X10'3 (140-440); WHITE BLOOD COUNT 7.5 X10'3 (4.5-11.0)
--- NOTE | 2020-05-15 15:30 | NUR ---
Vascular ultrasound redone to r/o bleed and hematoma. Addendum: 05/15/20 at 1705 by Charanjit Holden RN Amended: Links added.
--- NOTE | 2020-05-15 15:50 | NUR ---
Pt taken to CT via parrish. CT done of Abdomen and pelvis.Pt returned to room via parrish post CT scan. Addendum: 05/15/20 at 1705 by Charanjit Holden RN Amended: Links added.
[2020-05-15] MEDS ORDERED: acetylcysteine 200 MG/ml 4ml vial PO SCH (20:00)
[2020-05-16] MEDS ORDERED: aspirin 81mg tab.chew PO SCH (08:00)
[2020-05-16] MEDS ORDERED: clopidogrel 75mg tablet PO SCH (08:00)
== END 2020-05-15 20:35 | disposition home or self-care (01) ==
LOC: SSTAY O 06:03
PROVIDERS: ATTEND Internal Medicine Cardiovascular Disease
DX: T82.855A Stenosis of coronary artery stent, initial encounter (principal); I25.10 Atherosclerotic heart disease of native coronary artery without angina pectoris; R94.39 Abnormal result of other cardiovascular function study; I47.2 Ventricular tachycardia; I25.82 Chronic total occlusion of coronary artery; I10 Essential (primary) hypertension; E78.5 Hyperlipidemia, unspecified; Z95.5 Presence of coronary angioplasty implant and graft; Y83.8 Other surgical procedures as the cause of abnormal reaction of the patient, or of later complication, without mention of misadventure at the time of the procedure; Y92.89 Other specified places as the place of occurrence of the external cause; Z85.46 Personal history of malignant neoplasm of prostate
CPT/HCPCS: 36415; 74176; 76937; 80048; 85025; 85027; 85347; 85610; 85730; 86885; 86900; 86901; 86920; 93005; 93459; 93926; C1725; C1769; C1874; C9604; J1644; J2001; J2250; J3010; J7040; Q0163; Q9967; 99152; 99153; A4620; A6258; J3490